=== PATIENT | male | born 1970 | race Caucasian/White ===

== ENCOUNTER 2019-01-22 03:35 | Emergency (ER) | payer MEDICAID ==
[~2019-01-22] VITALS: Ht 165.1 cm; Wt 60.0 kg
[2019-01-22] MEDS ORDERED: KETOROLAC 30MG/ML VIAL IM ONE (04:15)
[2019-01-22 05:19] VITALS: BP 124/81
== END 2019-01-22 05:25 | disposition home or self-care (01) ==
LOC: ER 03:35
DX: M79.10 Myalgia, unspecified site (principal); F17.200 Nicotine dependence, unspecified, uncomplicated
CPT/HCPCS: 99283; J1885